=== PATIENT | male | born 1965 | race American Indian/Alaskan Native ===

== ENCOUNTER 2023-01-26 12:31 | Emergency (ER) | payer MEDICAID | END 2023-01-26 16:05 | disposition home or self-care (01) | LOC: JD.ED 12:31 | DX: S01.112A Laceration without foreign body of left eyelid and periocular area, initial encounter (principal); F10.920 Alcohol use, unspecified with intoxication, uncomplicated; W19.XXXA Unspecified fall, initial encounter | CPT/HCPCS: 70450; 70450-26; 70486; 70486-26; 99284 ==

== ENCOUNTER 2023-02-13 10:00 | Emergency (ER) | payer MEDICAID ==
[2023-02-13] MEDS ORDERED: Sodium Chloride 0.9% 10 ML Syringe FLUSH PRN (10:09)
[2023-02-13] MEDS ORDERED: Sodium Chloride 0.9% 1,000 ML IV SCH (10:15)
[2023-02-13 12:26] LABS: ESTIMATED GFR 108 mL/min (>60)
[2023-02-13] MEDS ORDERED: levETIRAcetam 1,000 MG in Sodium Chloride 0.9% 100 ML IV ONE (14:08)
[2023-02-13] MEDS ORDERED: Lidocaine 1% 10 ML MDV INJECT ONE (14:14)
== END 2023-02-13 16:24 | disposition home or self-care (01) ==
LOC: JD.ED 10:00
DX: S01.81XA Laceration without foreign body of other part of head, initial encounter (principal); R56.9 Unspecified convulsions; Z72.0 Tobacco use; W19.XXXA Unspecified fall, initial encounter
CPT/HCPCS: 12013; 36415; 70450; 71045; 72125; 80053; 80306; 80307; 81001; 83735; 84484; 85025; 85610; 85730; 86140; 93005; 96361; 96365; 99285; J1953; J3490; J7030; 93010; 99284

== ENCOUNTER 2023-03-03 21:04 | Emergency (ER) | payer MEDICAID ==
[2023-03-03] MEDS ORDERED: Lidocaine 1% 10 ML MDV INJECT ONE (22:11)
[2023-03-03] MEDS ORDERED: Diphtheria,Pertussis(Acell),Tetanus Vaccine 0.5 ML Syringe IM ONE (23:54)
== END 2023-03-04 00:36 | disposition home or self-care (01) ==
LOC: JD.ED 21:04
DX: S01.81XA Laceration without foreign body of other part of head, initial encounter (principal); S01.312A Laceration without foreign body of left ear, initial encounter; Z23 Encounter for immunization; W18.30XA Fall on same level, unspecified, initial encounter
CPT/HCPCS: 12015; 70450; 70450-26; 90471; 90715; 99283; 99283-25; J3490

== ENCOUNTER 2023-03-06 23:20 | Emergency (ER) | payer MEDICAID ==
[2023-03-06] MEDS ORDERED: Sodium Chloride 0.9% 1,000 ML IV SCH (23:45)
[2023-03-07 00:43] LABS: ESTIMATED GFR 108 mL/min (>60)
[2023-03-07 00:46] LABS: ACETAMINOPHEN 0 ug/mL (10-30)
[2023-03-07] MEDS ORDERED: Ondansetron 4 MG Tab.DIS PO ONE (09:31)
== END 2023-03-07 11:56 | disposition home or self-care (01) ==
LOC: JD.ED 23:20
DX: F10.129 Alcohol abuse with intoxication, unspecified (principal); Y90.1 Blood alcohol level of 20-39 mg/100 ml
CPT/HCPCS: 36415; 80053; 80143; 80179; 80306; 80307; 82140; 83735; 84100; 85025; 85610; 99284; A9270; 99283

== ENCOUNTER 2023-03-09 13:05 | Emergency (ER) | payer MEDICAID ==
[2023-03-09 14:22] LABS: ACETAMINOPHEN 1 ug/mL (10-30); ESTIMATED GFR 100 mL/min (>60)
== END 2023-03-09 18:37 | disposition home or self-care (01) ==
LOC: JD.ED 13:05
DX: F10.10 Alcohol abuse, uncomplicated (principal)
CPT/HCPCS: 36415; 80053; 80143; 80179; 80306; 80307; 85025; 99283

== ENCOUNTER 2023-03-17 15:15 | Emergency (ER) | payer MEDICAID ==
[2023-03-17 16:21] LABS: BASOPHILS ABSOLUTE AUTO 0.03 K/mm3 (0.01-0.08); BASOPHILS PERCENT AUTO 0.6 % (0.1-1.2); EOSINOPHILS ABSOLUTE AUTO 0.28 K/mm3 (0.04-0.54); EOSINOPHILS PERCENT AUTO 5.2 (0.8-7.0); HEMATOCRIT 44.2 % (40.1-51.0); HEMOGLOBIN 14.3 gm/dl (13.7-17.5); IMMATURE GRAN ABSOLUTE AUTO 0.03 K/mm3 (0.00-0.10); IMMATURE GRAN PERCENT AUTO 0.6 % (<=1.0); LYMPHOCYTES ABSOLUTE AUTO 1.04 K/mm3 (1.32-3.57); LYMPHOCYTES PERCENT AUTO 19.2 % (21.8-53.1); MEAN CORPUSCULAR HEMOGLOBIN 29.4 pg (25.7-32.2); MEAN CORPUSCULAR HGB CONC 32.4 g/dl (32.2-35.5); MEAN CORPUSCULAR VOLUME 90.8 fl (79.0-92.2); MONOCYTES ABSOLUTE AUTO 0.53 K/mm3 (0.30-0.82); MONOCYTES PERCENT AUTO 9.8 % (5.3-12.2); NEUTROPHILS ABSOLUTE AUTO 3.52 K/mm3 (1.78-5.38); NEUTROPHILS PERCENT AUTO 64.6 % (34.0-67.9); PLATELET COUNT,PLT 175 K/mm3 (163-337); RED BLOOD CELL COUNT 4.87 M/mm3 (4.63-6.08); WHITE BLOOD CELL COUNT,WBC 5.43 K/mm3 (4.23-9.07)
[2023-03-17 16:36] LABS: A/G RATIO 0.7 (1-2); BILIRUBIN TOTAL 0.3 mg/dL (0.2-1.0); BUN/CREATININE RATIO 16.3 (14-18); CALCIUM 8.5 mg/dL (8.5-10.1); CREATININE 0.8 mg/dL (0.7-1.3); EST CRCL DRUG DOSING (CG) 99.49 mL/min; ETHANOL BLOOD MEDICAL 0.3 gm% (0.00); PROTEIN TOTAL,TP 7.2 g/dl (6.4-8.2)
== END 2023-03-17 18:40 | disposition home or self-care (01) ==
LOC: JD.ED 15:15
DX: S00.83XA Contusion of other part of head, initial encounter (principal); F10.229 Alcohol dependence with intoxication, unspecified; Z79.899 Other long term (current) drug therapy; W18.30XA Fall on same level, unspecified, initial encounter; Y92.481 Parking lot as the place of occurrence of the external cause
CPT/HCPCS: 36415; 80053; 80307; 85025; 99283

== ENCOUNTER → 2023-03-23 | Day surgery (SDC) | payer MEDICAID ==
[~2023-03-23] MED LIST: Brimonidine 0.2% Ophth Soln 5 ML Bottle EYERT SCH
[2023-03-23] MEDS: Phenylephrine 2.5% Ophth Soln 2 ML Bot EYERT SCH ×3 (13:30→13:50)
[2023-03-23] MEDS: Tropicamide 1% Ophth Soln 15 ML Bottle EYERT SCH ×3 (13:35→13:55)
== END ==
LOC: JD.SDS 13:50
PROVIDERS: ATTEND Ophthalmology
DX: H26.491 Other secondary cataract, right eye (principal); F41.9 Anxiety disorder, unspecified; F32.A Depression, unspecified; G40.909 Epilepsy, unspecified, not intractable, without status epilepticus; Z96.1 Presence of intraocular lens; Z79.899 Other long term (current) drug therapy
CPT/HCPCS: 66821; A9270

== ENCOUNTER 2023-03-25 16:20 | Emergency (ER) | payer MEDICAID | END 2023-03-25 20:00 | disposition home or self-care (01) | LOC: JD.ED 16:20 | DX: S09.90XA Unspecified injury of head, initial encounter (principal); S00.01XA Abrasion of scalp, initial encounter; F10.920 Alcohol use, unspecified with intoxication, uncomplicated; E78.00 Pure hypercholesterolemia, unspecified; K21.9 Gastro-esophageal reflux disease without esophagitis; Z79.899 Other long term (current) drug therapy; W22.8XXA Striking against or struck by other objects, initial encounter | CPT/HCPCS: 70450; 70450-26; 99282; 99284 ==

== ENCOUNTER 2023-03-28 09:14 | Emergency (ER) | payer MEDICAID ==
[2023-03-28 11:17] LABS: APPEARANCE,URINE CLEAR (Clear); BILIRUBIN,URINE 1+ (Negative); COLOR,URINE DARK YELLOW (Yellow); GLUCOSE,URINE NEGATIVE (Negative); KETONES,URINE 2+ (Negative); LEUKOCYTE ESTERASE,URINE NEGATIVE (Negative); NITRITE,URINE NEGATIVE (Negative); OCCULT BLOOD,URINE NEGATIVE (Negative); PROTEIN,URINE NEGATIVE (Negative)
[2023-03-28 11:21] LABS: BASOPHILS ABSOLUTE AUTO 0.02 K/mm3 (0.01-0.08); BASOPHILS PERCENT AUTO 0.2 % (0.1-1.2); EOSINOPHILS ABSOLUTE AUTO 0.09 K/mm3 (0.04-0.54); HEMOGLOBIN 14.3 gm/dl (13.7-17.5); IMMATURE GRAN ABSOLUTE AUTO 0.02 K/mm3 (0.00-0.10); IMMATURE GRAN PERCENT AUTO 0.2 % (<=1.0); LYMPHOCYTES ABSOLUTE AUTO 1.07 K/mm3 (1.32-3.57); LYMPHOCYTES PERCENT AUTO 12.3 % (21.8-53.1); MEAN CORPUSCULAR HEMOGLOBIN 29.8 pg (25.7-32.2); MEAN CORPUSCULAR HGB CONC 33.3 g/dl (32.2-35.5); MEAN CORPUSCULAR VOLUME 89.6 fl (79.0-92.2); MONOCYTES ABSOLUTE AUTO 1.14 K/mm3 (0.30-0.82); MONOCYTES PERCENT AUTO 13.1 % (5.3-12.2); NEUTROPHILS ABSOLUTE AUTO 6.36 K/mm3 (1.78-5.38); NEUTROPHILS PERCENT AUTO 73.2 % (34.0-67.9); PLATELET COUNT,PLT 202 K/mm3 (163-337)
[2023-03-28 11:26] LABS: BARBITURATE SCREEN,URINE NEGATIVE (CUTOFF=200); BENZODIAZEPINES SCREEN,URINE NEGATIVE (CUTOFF=150); BUPRENORPHINE SCREEN,URINE NEGATIVE (CUTOFF=10); METHADONE SCREEN, URINE NEGATIVE (CUT0FF=200); METHAMPHETAMINES SCREEN, URINE NEGATIVE (CUTOFF=500); OXYCODONE SCREEN,URINE NEGATIVE (CUT0FF=100); PROPOXYPHENE SCREEN,URINE NEGATIVE (CUTOFF=300); THC SCREEN,URINE 20 NG/ML NEGATIVE (CUTOFF=50)
[2023-03-28 11:32] LABS: AMPHETAMINES SCREEN, URINE NEGATIVE (CUTOFF=500)
[2023-03-28 11:42] LABS: AMORPHOUS SEDIMENT,URINE FEW /hpf (NOT SEEN); BACTERIA,URINE FEW /hpf (FEW); MUCUS,URINE FEW /hpf (FEW); RBC,URINE 0-5 /hpf (0-5); SQUAMOUS EPITHELIAL CELLS,UR 0-5 /hpf (0-5); WBC,URINE 0-5 /hpf (0-5)
[2023-03-28 11:44] LABS: A/G RATIO 0.9 (1-2); ALANINE AMINOTRANSFERASE,ALT 111 U/L (16-63); ALBUMIN 3.4 g/dl (3.4-5.0); ALKALINE PHOSPHATASE 112 U/L (46-116); ASPARTATE AMNIOTRANSFERASE,AST 126 U/L (15-37); BILIRUBIN TOTAL 0.8 mg/dL (0.2-1.0); BLOOD UREA NITROGEN,BUN 11 mg/dL (7-18); BUN/CREATININE RATIO 12.2 (14-18); CALCIUM 9.5 mg/dL (8.5-10.1); CARBON DIOXIDE,CO2 27 mEq/L (21-32); CHLORIDE,CL 98 mEq/L (98-107); CREATININE 0.9 mg/dL (0.7-1.3); ESTIMATED GFR 100 mL/min (>60); GLUCOSE RANDOM 119 mg/dL (70-99); MAGNESIUM 1.9 mg/dL (1.8-2.4); PROTEIN TOTAL,TP 7.1 g/dl (6.4-8.2); SODIUM,NA 135 mEq/L (136-145); TROPONIN I HIGH SENSITIVITY 11 pg/mL (<=76)
== END 2023-03-28 12:53 | disposition home or self-care (01) ==
LOC: JD.ED 09:14
DX: E87.6 Hypokalemia (principal); E78.00 Pure hypercholesterolemia, unspecified; Z79.899 Other long term (current) drug therapy
CPT/HCPCS: 36415; 70450; 70450-26; 71045; 71045-26; 80053; 80306; 80307; 81001; 83735; 84484; 85025; 86140; 93005; 93010; 99284; 99285